=== PATIENT | female | born 1965 | race Caucasian/White ===

== ENCOUNTER 2017-05-01 17:30 | Emergency (ER) | payer OTHER, SELFPAY ==
[~2017-05-01] VITALS: Ht 165.1 cm; Wt 115.0 kg
[~2017-05-01 17:30] MED LIST: ALBU8HFA PO; ANTI10DR6 LEFT EAR; AZIT250T PO; CEPH-572 PO; GUAI600T45 PO; KETO15CR2 TP; NO HOME MEDS; TOBDEXOO LEFTEYE
[2017-05-01 17:40] VITALS: BP 161/85
[2017-05-01] MEDS ORDERED: NEOM10SO7 OT (18:47)
[2017-05-01] MEDS ORDERED: CIPR-230 PO (18:47)
== END 2017-05-01 19:31 | disposition home or self-care (01) ==
LOC: ER 17:30
DX: H60.91 Unspecified otitis externa, right ear (principal); I10 Essential (primary) hypertension; Z88.0 Allergy status to penicillin; Z79.899 Other long term (current) drug therapy
CPT/HCPCS: 69209; 69210; 99283; 99284

== ENCOUNTER 2018-04-05 11:52 | Emergency (ER) | payer BC, OTHER ==
[~2018-04-05] VITALS: Ht 165.1 cm; Wt 102.3 kg
[~2018-04-05 11:52] MED LIST changes: +NEOM10SO7 OT
[2018-04-05 13:17] VITALS: BP 157/85
[2018-04-05] MEDS ORDERED: LEVO750T21 PO (14:21)
[2018-04-05] MEDS ORDERED: SULF1TAB49 PO (14:21)
[2018-04-05] MEDS ORDERED: ERYT1OIN6 LEFTEYE (14:21)
[2018-04-05] MEDS ORDERED: CLOT15CR73 TP (14:21)
== END 2018-04-05 15:23 | disposition home or self-care (01) ==
LOC: ER 11:53
DX: H00.024 Hordeolum internum left upper eyelid (principal); H00.034 Abscess of left upper eyelid; L21.9 Seborrheic dermatitis, unspecified; I10 Essential (primary) hypertension; Z88.1 Allergy status to other antibiotic agents; Z88.0 Allergy status to penicillin; Z88.8 Allergy status to other drugs, medicaments and biological substances
CPT/HCPCS: 99283

== ENCOUNTER 2019-05-02 07:31 | Emergency (ER) | payer BC ==
[~2019-05-02] VITALS: Ht 165.1 cm; Wt 101.6 kg
[~2019-05-02 07:31] MED LIST changes: +CLOT15CR73 TP
[2019-05-02] MEDS ORDERED: CLIN150C8 PO (08:20)
[2019-05-02 08:36] VITALS: BP 154/84
== END 2019-05-02 08:38 | disposition home or self-care (01) ==
LOC: ER 07:31
DX: H66.93 Otitis media, unspecified, bilateral (principal); I10 Essential (primary) hypertension; Z88.0 Allergy status to penicillin; Z79.899 Other long term (current) drug therapy
CPT/HCPCS: 99283

== ENCOUNTER 2019-09-24 07:10 | Emergency (ER) | payer BC ==
[~2019-09-24] VITALS: Ht 165.1 cm; Wt 102.3 kg
[~2019-09-24 07:10] MED LIST changes: +CLIN150C8 PO
[2019-09-24 07:13] VITALS: BP 169/91
== END 2019-09-24 08:27 | disposition home or self-care (01) ==
LOC: ER 07:10
DX: H10.9 Unspecified conjunctivitis (principal); H60.61 Unspecified chronic otitis externa, right ear; I10 Essential (primary) hypertension; Z88.0 Allergy status to penicillin; Z88.8 Allergy status to other drugs, medicaments and biological substances; Z79.899 Other long term (current) drug therapy
CPT/HCPCS: 99281